=== PATIENT | male | born 1990 | race Asian ===

== ENCOUNTER 2018-10-25 16:24 | Emergency (ER) | payer OTHER ==
[~2018-10-25] VITALS: Ht 167.6 cm; Wt 104.3 kg
[2018-10-25 17:12] VITALS: BP 143/80
--- NOTE | 2018-10-25 17:36 | NUR ---
PT IN THE LOBBY W/ VSS. NO NEW COMPLAINTS
--- NOTE | 2018-10-25 18:42 | NUR ---
PT AMBULATES TO BED 7
--- NOTE | 2018-10-25 18:49 | NUR ---
c/o SORE THROAT X1 DAY, TONSILS ARE RED AND SWOLLEN. STATES WAS SICK LAST WEEK WITH FLU LIKE SYMPTOMS. DENIES N/V/D; SKIN IS PINK/WARM/DRY; AAOX4 WITH EVEN AND STEADY GAIT; LUNGS CLEAR BL; HR EVEN AND REGULAR; PT DENIES ANY FEVER, CP, SOB, OR COUGH AT THIS TIME; PATIENT STATES PAIN OF 0/10 AT THIS TIME. PATIENT POSITIONED FOR COMFORT; HOB ELEVATED; BEDRAILS UP X2; BED DOWN. ER MD MADE AWARE OF PT STATUS.
--- NOTE | 2018-10-25 19:13 | NUR ---
Pt report given to DEXTER TAPIA. Transfer of care at this time.
--- NOTE | 2018-10-25 19:15 | NUR ---
PT SITTING UP IN BED, VSS
[2018-10-25 20:03] VITALS: BP 143/80
--- NOTE | 2018-10-25 20:03 | NUR ---
Patient discharged with v/s stable. Written and verbal after care instructions given and explained. Patient alert, oriented and verbalized understanding of instructions. Ambulatory with steady gait. All questions addressed prior to discharge. ID band removed. Patient advised to follow up with PMD. Rx of PREDNISONE, AND MOTRIN WAS given. Patient educated on indication of medication including possible reaction and side effects. Opportunity to ask questions provided and answered.
== END 2018-10-25 20:03 | disposition home or self-care (01) ==
LOC: MED 16:24
DX: J02.9 Acute pharyngitis, unspecified (principal); R06.00 Dyspnea, unspecified
CPT/HCPCS: 99283